=== PATIENT | male | born 1960 | race Caucasian/White ===

== ENCOUNTER 2019-05-11 07:02 | Inpatient (IN) ==
--- NOTE | 2019-04-29 12:05 | Anesthesiology Consultation ---
Date of Service April 29, 2019 Assessment & Plan (1) Encounter for pre-operative examination: PCP clearance ([facility]) 05/06 = "patient is medically cleared for intended procedure." Chart Review Chart Review: Acceptable Risk for Surgery and Patient seen in Pre Admission Testing Teaching & Discussion Instructed NPO after midnight before surgery, except medications with 15 cc of water. Medication instructions provided according to the PAT guidelines. History Surgery Operation Date: 05/11/19 09:00 Proposed Procedures p Left Total Hip Arthroplasty - Heath Garner DO Operation Date: 05/21/19 07:00 Proposed Procedures p Left Total Hip Arthroplasty - Jeffrey Smith MD Height/Weight Height: 5 ft 10 in Weight: 94 kg Allergies Allergy/AdvReac Type Severity Reaction Status Date / Time No Known Allergies Allergy Verified 04/21/19 10:45 Medications Home Medications Medication Instructions Recorded Confirmed Last Taken lisinopril 20 mg PO QAM 10/29/18 04/21/19 12/07/18 06:00 meloxicam 15 mg PO QAM 04/21/19 04/21/19 Unknown Past Medical History Medical History Hypertension Osteoarthritis Exercise / Class Metabolic Activity II 4-5 Yardwork/Stairs/Walk up hill (Somewhat limited by hip pain but denies CP or SOB with stairs) Past Family History Family History Other Family history of cancer Past Surgical History Surgical History History of surgery CHILDHOOD/UNKNOWN TYPE--HAS SCAR ON INGUINAL AREA--POSSIBLY HERNIA REPAIR? History of tooth extraction MULTIPLE History of total hip arthroplasty RIGHT HIP, DEC 2018, [facility] Past Anesthesia History No Hx of Anesthesia Complications History of PONV No Hx of PONV and Hx of Motion Sickness Social History Smoking Status: Former smoker tobacco type: cigarettes Smoking cigarettes per day: HX OF PREVIOUS USE, PT STATES HE QUIT SEVERAL YEARS AGO Do You Dip or Chew Tobacco: No Hx Alcohol Use: Yes Alcohol type: beer alcohol intake frequency: a few times a week Hx Substance Use: No substance use type: does not use Review of Systems Pt denies any recent chest pain, shortness of breath, palpitations, cough, fever or URI. 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) P: 76bpm SPO2: 99% RA T: 98.3 F R: 16 ENMT Mouth: + dentures (top); no chipped teeth and no loose teeth Thyromental Distance: > or= 3.5 Finger Breadths (4) Mallampati Class: I Neck normal visual inspection; neck extension not limited Respiratory normal respiratory effort Auscultation: lungs clear to auscultation bilaterally Cardiovascular Rate/Rhythm: regular rate and regular rhythm Heart Sounds: no murmur Vessels: no carotid bruit Extremities: no edema Testing Laboratory Results 04/29/19 11:51 04/29/19 11:51 04/29/19 04/29/19 04/29/19 11:51 11:51 11:51 PT 10.5 INR 1.0 APTT 26.3 Hemoglobin A1c 5.6 Urine Color Yellow Urine Appearance Clear Urine pH 5.0 Ur Specific [place] 1.022 Urine Protein Negative Urine Glucose (UA) Negative Urine Ketones Negative Urine Nitrite Negative Ur Leukocyte Esterase Negative Urine WBC (Auto) 0 Urine RBC (Auto) 0-4 U Hyaline Cast (Auto) 0 U Epithel Cells (Auto) 0-5 Urine Bacteria (Auto) Negative Blood Type Antibody Screen 04/29/19 11:51 PT INR APTT Hemoglobin A1c Urine Color Urine Appearance Urine pH Ur Specific [place] Urine Protein Urine Glucose (UA) Urine Ketones Urine Nitrite Ur Leukocyte Esterase Urine WBC (Auto) Urine RBC (Auto) U Hyaline Cast (Auto) U Epithel Cells (Auto) Urine Bacteria (Auto) Blood Type A Positive Antibody Screen NEGATIVE Electrocardiogram Date: 04/29/19 Findings: + NSR @ (70) Chest X-Ray Date: 11/05/18 Findings: + NAD
--- NOTE | 2019-04-29 12:12 | PAT Medication Instructions ---
Medication Instructions Date of Service April 29, 2019 Home Medications lisinopril 20 mg PO QAM meloxicam 7.5 mg PO UD PRN ASK your surgeon for instructions meloxicam 7.5 mg PO UD PRN DO NOT take the morning of surgery lisinopril 20 mg PO QAM Other Notes If you have any questions please call us at [phone] or [phone] or [phone] or [phone]
[2019-04-29 13:07] LABS: Appearance Urine Clear (Clear); Bacteria Urine Automated Negative (Negative); Bilirubin Urine Negative (Negative); Blood Urine 1+ (Negative); Cast Urine Automated 0 /lpf (0-5); Color Urine Yellow; Epithelial Cell Urine Auto 0-5 /lpf (0-5); Glucose Urine UA Negative (Negative); Ketones Urine Negative (Negative); Leukocyte Esterase Urine Negative (Negative); Nitrite Urine Negative (Negative); Protein Urine Negative (Negative); RBC Urine Automated 0-4 /hpf (0-4); Specific Gravity Urine 1.022 (1.000-1.030); Urobilinogen Urine Negative (Negative); WBC Urine Automated 0 /hpf (0-5)
[2019-04-29 13:08] LABS: Basophils # (auto) 0.02 K/uL (0-0.2); Basophils % (auto) 0.5 %; Eosinophils # (auto) 0.11 K/uL (0-0.5); Eosinophils % (auto) 2.9 %; Hematocrit (blood only) 44.5 % (42-52); Hemoglobin 15.1 g/dL (14.0-18.0); Lymphocytes # (auto) 1.36 K/uL (1.2-3.4); Lymphocytes % (auto) 35.9 %; Mean Corpuscular Hgb Conc 33.9 g/dL (32-36); Mean Corpuscular Volume 86.6 fL (80-100); Mean Platelet Volume 9.9 fL (7.4-10.4); Monocytes % (auto) 10.6 %; Neutrophils % (auto) 50.1 %; Platelet Count 223 K/uL (130-400); RDW Coefficient of Variation 12.9 % (11.5-14.5); RDW Standard Deviation 41.4 fL (36.4-46.3); Red Blood Count 5.14 M/uL (4.7-6.1); White Blood Count 3.79 K/uL (4.8-10.8)
[2019-04-29 13:17] LABS: Albumin Level 3.7 gm/dl (3.4-5.0); BUN Creatinine Ratio 15.4 (10-20); Calcium 9.2 mg/dl (8.5-10.1); Creatinine Clr Calc Pharmacy 100.4 ml/min; Est GFR (African American) 105.2; Est GFR (Non-African American) 90.8; Potassium 4.4 mmol/L (3.5-5.1)
[2019-04-29 13:20] LABS: Partial Thromboplastin Time 26.3 Seconds (21.0-31.0); Prothrombin Time 10.5 Seconds (9.0-12.0)
[2019-04-29 13:41] LABS: Estimated Average Glucose 114 mg/dl; Hemoglobin A1C 5.6 % (4.5-5.6)
--- NOTE | 2019-05-09 13:17 | History & Physical Report ---
Date of Service May 09, 2019 Assessment & Plan (1) Degenerative joint disease (DJD) of hip: I have indicated the patient for left total hip replacement. The risks, benefits and complications of surgery were explained to the patient which include but not limited to infection, acute blood loss, DVT/PE, injury to nerves, vessels, bone, soft tissue, arthrofibrosis, chronic pain, failure of the prosthesis, hip dislocation, leg length discrepancy, need for additional surgery, cardiac and pulmonary events and . The patient wished to proceed with surgery and informed consent was obtained at this time. We will plan for ASA BID post-operatively for DVT prophylaxis. Upon discharge the patient will be discharged home with home health services. Appropriate clearances by PCP were obtained. History of Present Illness Chief Complaint: Left hip pain/DJD Primary Care Provider: Erick Durbin The patient is a 59 year old male who presents with complaints of severe left hip pain and DJD. The patient has failed outpatient conservative treatments to this point which included NSAIDs, home exercise/walking program/PT. IA corticosteroid injection discussed, patient declined. The patient's pain and limited function have progressed to the point where they severely hinder their activities of daily living and they no longer tolerate exercise programs. They are requesting to proceed with total hip replacement surgery. Allergies Allergy/AdvReac Type Severity Reaction Status Date / Time No Known Allergies Allergy Verified 05/11/19 07:44 Home Medications Home Medications Medication Instructions Recorded Confirmed Type lisinopril 20 mg PO QAM 10/29/18 05/11/19 History meloxicam 15 mg PO QAM 04/21/19 05/11/19 History Past Med/Surg History Medical History Hypertension Osteoarthritis Surgical History History of surgery CHILDHOOD/UNKNOWN TYPE--HAS SCAR ON INGUINAL AREA--POSSIBLY HERNIA REPAIR? 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 Beliefs That Will Affect Care: None marital status: Current Living Situation: Spouse Other Information That Helps Us Care for You: No Feels Safe at Home: Yes Safety Concerns: Feels Safe At This Time Smoking Status: Former smoker Tobacco Type: cigarettes Cigarettes Per Day: HX OF PREVIOUS USE, PT STATES HE QUIT SEVERAL YEARS AGO Do You Dip or Chew Tobacco: No Second Hand Exposure: No Tobacco Cessation Education Requested by Patient: No Hx Alcohol Use: Yes Alcohol type: beer Hx Substance Use: No Review of Systems Review of Systems: All systems reviewed & are unremarkable except as noted in HPI & below Constitutional: as per Subjective / HPI Physical Exam Physical Exam: LLE NVSI +EHL/FHL/TA/GS SILT grossly, +2 DP pulse, compartments soft NT, limited painful ROM of the hip, antalgic gait. Constitutional: WD/WN, vitals as above Eyes: PERRL, conjunctivae normal, anicteric sclerae ENMT: external ear and nose normal, oropharynx normal Neck: trachea midline, no thyromegaly Respiratory: normal respiratory effort, lungs clear to auscultation Cardiovascular: RRR, no murmur, no edema Chest (Breasts): normal inspection/palpation of breasts Gastrointestinal (Abdomen): normal bowel sounds, soft, nontender, no hepatosplenomegaly Musculoskeletal: no cyanosis or clubbing, extremities motor strength 5/5 Skin: no rashes, warm and dry Neurologic: patellar DTR's 2+ bilat, sensation intact Psychiatric: A+Ox3, euthymic affect Lymphatic: no cervical or axillary lymphadenopathy Results & Data Diagnostic Findings Multiple views of the hip demonstrates severe DJD with complete loss of the joint space. +osteophytes, +sclerosis, +subchondral cysts.
[~2019-05-11 07:02] MED LIST: ACETAMINOPHEN 500 MG TAB PO SCH; CEFAZOLIN 2000MG 2,000 MG/15 ML SYR IV SCH; CeleBREX 200 MG CAP PO SCH; FAMOTIDINE 20 MG TAB PO SCH; GABAPENTIN 300 MG x 2 PO SCH; LR 500ML BOLUS, THEN 15ML/HR IV SCH; METOCLOPRAMIDE HCL 10 MG TABLET PO SCH; MIDAZOLAM HCL 1 MG/ML 2ML VIAL ONE; PHENYLEPHRINE HCL 10 MG/ML VIAL ONE; PROPOFOL IV EMULSION 10 MG/ML 20 ML VIAL IV ONE; ROPIVACAINE 0.5% HCL/PF 150 MG, BUPIVACAINE 0.5% MPF 30 ML, EPINEPHrine 30MG/30ML (OR U... INFIL SCH; TRANEXAMIC ACID 1,000 MG **IV Intra-op IV SCH; TRANEXAMIC ACID 1,000 MG **IV Pre-op IV SCH; dexAMETHasone 4 MG TAB PO SCH; fentaNYL citrate 100 MCG/2 ML VIAL ONE
[2019-05-11] MEDS ORDERED: ATROPINE SULFATE 0.1 MG/ML 10ML SYR IV PRN (07:06)
[2019-05-11] MEDS ORDERED: ePHEDrine sulfate 50 MG/ML AMP IV PRN (07:06)
[2019-05-11] MEDS ORDERED: PHENYLEPHRINE 100MCG/ML 5ML SYR IV PRN (07:06)
[2019-05-11] MEDS ORDERED: ONDANSETRON INJ 2 MG/ML 2 ML VIAL IV PRN ×2 (07:06→11:52)
[2019-05-11] MEDS ORDERED: PROMETHAZINE HCL 12.5 MG in SODIUM CHLORIDE 0.9% 50 ML IV PRN (07:06)
[2019-05-11] MEDS ORDERED: HYDROmorphone INJ 1 MG/ML SYRINGE IV PRN (07:06)
[2019-05-11] MEDS ORDERED: fentaNYL citrate 100 MCG/2 ML VIAL IV PRN (07:06)
[2019-05-11] MEDS ORDERED: BUPIVACAINE 0.5 % 5 MG/1 ML PF 10ML VIAL ONE (07:07)
[2019-05-11] MEDS ORDERED: BACITRACIN INJ 50,000 UNIT VIAL ONE (07:11)
[2019-05-11] MEDS ORDERED: ORTHO JOINT ANESTHETIC ONE (07:11)
--- NOTE | 2019-05-11 08:36 | History & Physical Bridge Note ---
Date of Service May 11, 2019 History & Physical Bridge Note I have examined the patient, reviewed the History & Physical and in the interval since the performance of the History & Physical I have noted the following changes of clinical significance: no changes noted
--- NOTE | 2019-05-11 10:28 | Post Operative Brief Note ---
Immediate Post Op Note v1 Date of Surgery May 11, 2019 Pre & Post Diagnosis Operation Date: 05/11/19 09:30 Pre-Op Diagnosis: Unilateral Primary Osteoarthritis, Left Hip Post-Op Diagnosis: Unilateral Primary Osteoarthritis, Left Hip Operation Date: 05/21/19 07:00 <No data on this case meets the specified criteria> Procedure Operation Date: 05/11/19 09:30 Actual Procedures p Left Total Hip Arthroplasty-Uncemented(Left) - Heath Garner DO Operation Date: 05/21/19 07:00 <No data on this case meets the specified criteria> Surgeon Heath Garner DO Project Management It Specialist Derick Muse Estimated Blood Loss 85 Findings Consistent with Post-Op Diagnosis Fluids 1200 cc LR Specimens femoral head Anesthesia Type Spinal MAC Complications none Disposition Disposition: Recovery Room Overlapping Procedure I was present for: the critical portions of procedure. I was immediately available: during the entire case. Back up surgeon: was not required during procedure.
--- NOTE | 2019-05-11 10:48 | Operative Report ---
Post Operative Report Pre & Post Diagnosis Operation Date: 05/11/19 09:30 Pre-Op Diagnosis: Unilateral Primary Osteoarthritis, Left Hip Post-Op Diagnosis: Unilateral Primary Osteoarthritis, Left Hip Operation Date: 05/21/19 07:00 <No data on this case meets the specified criteria> Procedure Operation Date: 05/11/19 09:30 Actual Procedures p Left Total Hip Arthroplasty-Uncemented(Left) - Heath Garner DO Operation Date: 05/21/19 07:00 <No data on this case meets the specified criteria> Surgeon Heath Garner DO Career Development Specialist Derick Muse Estimated Blood Loss 85 Findings Consistent with Post-Op Diagnosis Specimens Femoral head Anesthesia Type Spinal MAC Complications none Disposition Disposition: Recovery Room Indications The patient is a 59-year-old male who presents with severe progressive left hip DJD who has failed outpatient conservative treatments. I indicated the patient for a total hip replacement and the risks and benefits were explained in detail which included but not limited to infection, bleeding, blood clot, damage to surrounding bone, nerves, vessels, soft tissue, hip dislocation, failure of the prosthesis, leg length discrepancy, need for additional surgery and . The patient agreed to proceed with replacement of the hip and informed consent was obtained. Appropriate clearances were obtained. Description of Procedure COMPONENTS USED: basno hip system: Acetabulum size 54 E, femur size 6 : 132 degree offset, femoral head 36-2.5, liner 36 E, acetabular screw 25 mm x 1. Following induction of adequate spinal anesthesia, the patient was transferred to the OR table and placed in lateral decubitus position with right hip down. The left hip was prepped and draped in the typical sterile fashion. A timeout was performed, patient identified and site marie confirmed. Appropriate antibiotics were given. A standard posterolateral/Andrew-Langenbeck incision was made. Subcutaneous tissue was sharply dissected. Electrocautery was utilized for hemostasis. The fascia was incised throughout the length of the wound and retracted with the Charnley retractor. The bursa was taken down and the short external rotators were identified. The piriformis was tagged with #1 Vicryl. The short external rotators and capsule were divided from the posterior aspect of the femur using electrocautery. The posterior capsule was tagged with #1 Vicryl. Both external rotators and posterior capsule were swept posterior and protected, along with protecting the sciatic nerve. The hip was dislocated by flexion and internally rotation in a controlled manner and exposure of the femoral neck was gained with an old-style Hohmann and a blunt cobra retractor. A femoral cutting guide was utilized for making the appropriate level femoral neck cut with reciprocating saw. The femoral head was removed, measured and reserved on the back table. Next, attention was turned to the acetabulum. A posterior and anterior offset retractor was placed to gain adequate exposure. Acetabular labrum as well as posterior capsule elements were removed using electrocautery and forceps. Fovea centralis was cleared of all soft tissue. Sequential reaming was performed starting at 48 mm and carried up to a 54 mm and decision was made to proceed with impaction of a 54 mm trabecular metal cup. This was impacted and held using a single 25 mm bone screw. The trial acetabular liner was placed at this time. Next, attention was turned to the proximal femur where a Bovie and pickup was used to further clear short ex ternal rotators from their insertion on the femur. Box osteotome and canal finder was used to gain access to the femoral canal and the lateral reamer on power was used to further open the proximal lateral canal. Sequentially rasping was carried up to a 6 which gave good fit and fill of the proximal femur. A trial reduction was carried out with a 132 degree offset femoral neck component a 36-2.5 mm femoral head. The trial reduction was stable in all degrees of rotation with no [id number] impingement. The hip was dislocated, trial components were removed and access to the acetabulum was re-established. The trial liner was removed and the cup was irrigated to ensure all debris was removed. The final acetabular liner was inserted and properly seated in the cup. Access to the femur was once more gained and the size 6 femoral stem with 132 degree offset was impacted into position. The hip was once more assessed with the 36-2.5 mm femoral head. Stability was accessed and found to be excellent with equal leg lengths. The hip was dislocated for the last time and the final 36-2.5 ceramic femoral head was impacted in place and the hip was reduced. Range of motion was checked once again and found to be stable. A Betadine soak was performed. After 3 minutes, the hip was once more irrigated with copious sterile saline solution with bacitracin. The percy-incisional soft tissue was injected utilizing [place] ortho mix which includes a combination of Ropivicaine 0.5% 150mg, Bupivicaine 0.5%/Epinephrine 1:200,000 30ml, Toradol 30mg, Dexamethasone 4mg, Ketamine 10mg, Clonidine 100mcg and NSS 30ml Orthomix solution. The piriformis, external rotators and capsule were repaired to the greater trochanter through bone tunnels using #5 FiberWire. The fascia was closed using #1 Vicryl, subcutaneous tissue was closed using 2-0 Vicryl, and skin was closed with 3-0 V-lock suture and Dermabond Prineo. Sterile dressings were applied which included nel, 4x4s and tegaderm adhesive dressing. The patient tolerated the procedure well and was transported to PACU in stable condition. Due to the complex nature of the procedure, the entire surgery was performed with the operational assistance of Derick Muse PA-C. The studio assistant, under direct supervision, was involved in the actual performance of all aspects of the surgical procedure including patient positioning, hemostasis, tissue retraction, instrument management and wound closure. I attest to the content of the Intraoperative Record and any orders documented therein. Any exceptions are noted below.
--- NOTE | 2019-05-11 11:23 | XRay Report ---
XR hip 1V LT w pelvis CLINICAL HISTORY: Postoperative evaluation. COMPARISON: None FINDINGS: Alignment of the total left hip arthroplasty is anatomic. There is no periprosthetic fract ure or unexpected radiopaque foreign body. There is an acetabular screw. Right hip arthroplasty is no marleni. IMPRESSION: Expected findings following total left hip arthroplasty. Electronically signed by: Alexy Lundy M.D. 05/11/2019 11:22 AM
--- NOTE | 2019-05-11 11:30 | Anesthesiology Progress Note ---
Date of Service May 11, 2019 Anesthesia Post Procedure Vital Signs Vital Signs: Temp Pulse Pulse Pulse Resp BP BP 05/11/19 11:26 75 17 104/66 05/11/19 11:25 67 16 05/11/19 11:21 67 14 95/64 L 05/11/19 11:20 77 13 05/11/19 11:16 69 14 103/64 05/11/19 11:15 70 14 05/11/19 11:11 80 19 98/62 L 05/11/19 11:10 75 19 05/11/19 11:06 75 16 100/63 05/11/19 11:05 71 20 05/11/19 11:01 76 15 92/66 L 05/11/19 11:00 76 21 05/11/19 10:55 36.3 C L 75 73 23 94/62 L 94/62 L 05/11/19 07:47 36.7 C 80 18 152/104 H Pulse Ox 05/11/19 11:26 97 05/11/19 11:25 97 05/11/19 11:21 98 05/11/19 11:20 96 05/11/19 11:16 98 05/11/19 11:15 98 05/11/19 11:11 97 05/11/19 11:10 98 05/11/19 11:06 98 05/11/19 11:05 98 05/11/19 11:01 98 05/11/19 11:00 98 05/11/19 10:55 95 05/11/19 07:47 98 Pain Intensity Left Hip: Pain Intensity: 0 Transfer of Care Handoff Completed per policy Notes Mental Status: alert / awake / arousable Patient Amnestic to Procedure: Yes Nausea / Vomiting: adequately controlled Pain: adequately controlled Airway Patency, RR, SpO2: stable & adequate BP & HR: stable & adequate Neuraxial Anesthesia: was administered and sensory block is resolving Anesthetic Complications: no major complications apparent Notes: Awake, doing well, no complaints. VSS.
[2019-05-11] MEDS ORDERED: NALOXONE HCL 0.4 MG/1 ML VIAL/CARP IV PRN (11:52)
[2019-05-11] MEDS ORDERED: METOCLOPRAMIDE HCL INJ 5 MG/ML 2 ML VIAL IV PRN (11:52)
[2019-05-11] MEDS ORDERED: OXYCODONE HCL IR 5 MG TAB (IMMEDIATE RELEASE) PO PRN (11:52)
[2019-05-11] MEDS ORDERED: MAGNESIUM HYDROXIDE SUSP 30 ML UDC PO PRN (11:52)
[2019-05-11] MEDS ORDERED: HYDROmorphone INJ 0.5 MG/0.5 ML SYR IV PRN (11:52)
[2019-05-11] MEDS ORDERED: BISACODYL 10 MG SUPP PR PRN (11:52)
[2019-05-11] MEDS ORDERED: SODIUM CHLORIDE 0.9% 1000ML 1,000 ML IV SCH (11:52)
[2019-05-11] MEDS: KETOROLAC 30 MG/ML VIAL IV SCH ×3 (12:24→23:56)
[2019-05-11] MEDS: ACETAMINOPHEN 500 MG TAB PO SCH ×2 (13:37→22:27)
--- NOTE | 2019-05-11 15:54 | Orthopedic Progress Note ---
Date of Service May 11, 2019 Assessment & Plan (1) Degenerative joint disease (DJD) of hip: Status post left total hip arthroplasty -Ancef x24 -DVT prophylaxis: SCDs, teds, ASA twice daily -Weight-bear as tolerated to left lower extremity -Posterior hip precautions -PT/OT -Postoperative x-ray demonstrates a well aligned well fixed prosthesis without fracture or dislocation. -A.m. labs -DC planning: Home with home health Subjective Post Operative Progress Note Patient seen sitting up in bed, comfortable, denies complaints, pain well controlled, no acute issues. Still feeling the effects of spinal anesthesia. Review of Systems Review of Systems: All systems reviewed & are unremarkable except as noted in HPI & below Constitutional: as per Subjective / HPI Physical Exam Physical Exam: Limited left lower extremity physical exam secondary to spinal anesthesia, +2 dorsalis pedis pulse, compartment soft nontender, dressing clean dry and intact. Constitutional: WD/WN, vitals as above Results & Data Vital Signs (Past 12 Hours) Vital Signs Temp Pulse Pulse Pulse Resp BP BP 05/11/19 15:00 36.7 C 72 18 137/92 05/11/19 13:41 81 14 124/81 05/11/19 12:59 36.5 C 75 18 129/81 05/11/19 12:18 36.4 C L 67 16 111/75 05/11/19 11:53 36.5 C 66 14 107/69 05/11/19 11:36 106/73 05/11/19 11:35 67 05/11/19 11:31 73 14 98/70 L 05/11/19 11:30 74 15 05/11/19 11:29 36.5 C 05/11/19 11:27 70 15 05/11/19 11:26 75 17 104/66 05/11/19 11:25 67 16 05/11/19 11:21 67 14 95/64 L 05/11/19 11:20 77 13 05/11/19 11:16 69 14 103/64 05/11/19 11:15 70 14 05/11/19 11:11 80 19 98/62 L 05/11/19 11:10 75 19 05/11/19 11:06 75 16 100/63 05/11/19 11:05 71 20 05/11/19 11:01 76 15 92/66 L 05/11/19 11:00 76 21 05/11/19 10:55 36.3 C L 75 73 23 94/62 L 94/62 L 05/11/19 07:47 36.7 C 80 18 152/104 H Pulse Ox 05/11/19 15:00 97 05/11/19 13:41 100 05/11/19 12:59 99 05/11/19 12:18 98 05/11/19 11:53 99 05/11/19 11:36 98 05/11/19 11:35 97 05/11/19 11:31 97 05/11/19 11:30 96 05/11/19 11:29 96 05/11/19 11:27 98 05/11/19 11:26 97 05/11/19 11:25 97 05/11/19 11:21 98 05/11/19 11:20 96 05/11/19 11:16 98 05/11/19 11:15 98 05/11/19 11:11 97 05/11/19 11:10 98 05/11/19 11:06 98 05/11/19 11:05 98 05/11/19 11:01 98 05/11/19 11:00 98 05/11/19 10:55 95 05/11/19 07:47 98
[2019-05-11] MEDS: CEFAZOLIN 2000MG 2,000 MG/15 ML SYR IV SCH (16:18)
[2019-05-11] MEDS: DOCUSATE SODIUM 100 MG CAP PO SCH (20:37)
[2019-05-11] MEDS ORDERED: SENNA 8.6 MG TAB PO SCH (21:00)
[2019-05-12] MEDS: CEFAZOLIN 2000MG 2,000 MG/15 ML SYR IV SCH (00:03)
[2019-05-12] MEDS: ACETAMINOPHEN 500 MG TAB PO SCH ×2 (05:46→13:35)
[2019-05-12] MEDS: KETOROLAC 30 MG/ML VIAL IV SCH (05:46)
[2019-05-12 05:47] LABS: Eosinophils # (auto) 0.01 K/uL (0-0.5); Eosinophils % (auto) 0.1 %; Hemoglobin 12.9 g/dL (14.0-18.0); Immature Granulocytes # (auto) 0.02 K/uL (0.00-0.02); Immature Granulocytes % (auto) 0.2 %; Lymphocytes # (auto) 1.17 K/uL (1.2-3.4); Lymphocytes % (auto) 8.9 %; Mean Corpuscular Hgb Conc 34.9 g/dL (32-36); Mean Corpuscular Volume 85.6 fL (80-100); Mean Platelet Volume 9.5 fL (7.4-10.4); Monocytes # (auto) 1.26 K/uL (0.11-0.59); Monocytes % (auto) 9.6 %; Neutrophils # (auto) 10.66 K/uL (1.4-6.5); Neutrophils % (auto) 81.2 %; Platelet Count 202 K/uL (130-400); RDW Coefficient of Variation 12.7 % (11.5-14.5); RDW Standard Deviation 40.4 fL (36.4-46.3); Red Blood Count 4.32 M/uL (4.7-6.1); White Blood Count 13.12 K/uL (4.8-10.8)
[2019-05-12 06:17] LABS: BUN Creatinine Ratio 18.9 (10-20); Calcium 8.4 mg/dl (8.5-10.1); Creatinine Clr Calc Pharmacy 89.5 ml/min; Est GFR (Non-African American) 80.3
--- NOTE | 2019-05-12 07:55 | Anesthesiology Progress Note ---
Date of Service May 12, 2019 Anesthesia Post Procedure Vital Signs Vital Signs: Temp Pulse Pulse Pulse Resp BP BP 05/12/19 07:02 36.9 C 66 18 132/83 05/12/19 03:00 36.8 C 74 18 111/68 05/11/19 23:25 36.8 C 82 16 103/66 05/11/19 19:05 36.6 C 89 16 132/77 05/11/19 15:00 36.7 C 72 18 137/92 05/11/19 13:41 81 14 124/81 05/11/19 12:59 36.5 C 75 18 129/81 05/11/19 12:18 36.4 C L 67 16 111/75 05/11/19 11:53 36.5 C 66 14 107/69 05/11/19 11:36 106/73 05/11/19 11:35 67 05/11/19 11:31 73 14 98/70 L 05/11/19 11:30 74 15 05/11/19 11:29 36.5 C 05/11/19 11:27 70 15 05/11/19 11:26 75 17 104/66 05/11/19 11:25 67 16 05/11/19 11:21 67 14 95/64 L 05/11/19 11:20 77 13 05/11/19 11:16 69 14 103/64 05/11/19 11:15 70 14 05/11/19 11:11 80 19 98/62 L 05/11/19 11:10 75 19 05/11/19 11:06 75 16 100/63 05/11/19 11:05 71 20 05/11/19 11:01 76 15 92/66 L 05/11/19 11:00 76 21 05/11/19 10:55 36.3 C L 75 73 23 94/62 L 94/62 L Pulse Ox 05/12/19 07:02 99 05/12/19 03:00 98 05/11/19 23:25 97 05/11/19 19:05 97 05/11/19 15:00 97 05/11/19 13:41 100 05/11/19 12:59 99 05/11/19 12:18 98 05/11/19 11:53 99 05/11/19 11:36 98 05/11/19 11:35 97 05/11/19 11:31 97 05/11/19 11:30 96 05/11/19 11:29 96 05/11/19 11:27 98 05/11/19 11:26 97 05/11/19 11:25 97 05/11/19 11:21 98 05/11/19 11:20 96 05/11/19 11:16 98 05/11/19 11:15 98 05/11/19 11:11 97 05/11/19 11:10 98 05/11/19 11:06 98 05/11/19 11:05 98 05/11/19 11:01 98 05/11/19 11:00 98 05/11/19 10:55 95 Pain Intensity Left Hip: Pain Intensity: 0 Notes Mental Status: alert / awake / arousable and participated in evaluation Patient Amnestic to Procedure: Yes Nausea / Vomiting: adequately controlled Pain: adequately controlled Airway Patency, RR, SpO2: stable & adequate BP & HR: stable & adequate Hydration State: stable & adequate Neuraxial Anesthesia: was administered and sensory block resolved Anesthetic Complications: no major complications apparent and Pt Satisfied with anesthetic care
[2019-05-12] MEDS ORDERED: MULTIVITAMIN TAB PO SCH (09:00)
[2019-05-12] MEDS ORDERED: ASPIRIN 325 MG ECTAB PO SCH (09:00)
[2019-05-12] MEDS ORDERED: LISINOPRIL 20 MG TAB PO SCH (09:00)
[2019-05-12] MEDS: DOCUSATE SODIUM 100 MG CAP PO SCH (09:26)
--- NOTE | 2019-05-12 10:15 | Orthopedic Progress Note ---
Date of Service May 12, 2019 Assessment & Plan (1) Degenerative joint disease (DJD) of hip: Status post left total hip arthroplasty POD#1 -Ancef x24 -DVT prophylaxis: SCDs, teds, ASA twice daily -Weight-bear as tolerated to left lower extremity -Posterior hip precautions -PT/OT -Postoperative x-ray demonstrates a well aligned well fixed prosthesis without fracture or dislocation. -A.m. labs - hgb 12.9 -DC planning: Home with home health Subjective Post Operative Progress Note Patient seen sittingat bedside, comfortable, denies complaints, pain well controlled, no acute issues. Review of Systems Review of Systems: All systems reviewed & are unremarkable except as noted in HPI & below Constitutional: as per Subjective / HPI Physical Exam Physical Exam: LLE NVSI +EHL/FHL/TA/GS SILT grossly, +2 DP pulse, compartments soft NT, dressing cdi. Constitutional: WD/WN, vitals as above Results & Data Vital Signs (Past 12 Hours) Vital Signs Temp Pulse Resp BP Pulse Ox 05/12/19 07:02 36.9 C 66 18 132/83 99 05/12/19 03:00 36.8 C 74 18 111/68 98 05/11/19 23:25 36.8 C 82 16 103/66 97
[2019-05-12] MEDS ORDERED: CeleBREX 200 MG CAP PO SCH (21:00)
--- NOTE | 2019-05-13 20:35 | Discharge Summary ---
Date of Service May 13, 2019 Admission HPI Per Admitting Provider The patient is a 59 year old male who presents with complaints of severe left hip pain and DJD. The patient has failed outpatient conservative treatments to this point which included NSAIDs, home exercise/walking program/PT. IA corticosteroid injection discussed, patient declined. The patient's pain and limited function have progressed to the point where they severely hinder their activities of daily living and they no longer tolerate exercise programs. They are requesting to proceed with total hip replacement surgery. Principal Diagnosis Left total hip replacement Discharge Exam LLE NVSI +EHL/FHL/TA/GS SILT grossly, +2 DP pulse, compartments soft NT, dressing cdi. Constitutional WD/WN, vitals as above Discharge Data Allergies Allergy/AdvReac Type Severity Reaction Status Date / Time No Known Allergies Allergy Verified 05/11/19 07:44 Consultations 05/12/19 08:00 Consult Case Management - Discharge Planning Routine Procedures Performed Operation Date: 05/11/19 09:30 Actual Procedures p Left Total Hip Arthroplasty-Uncemented(Left) - Heath Garner DO Operation Date: 05/21/19 07:00 <No data on this case meets the specified criteria> Hospital Course (1) Degenerative joint disease (DJD) of hip: The patient is a 59 -year-old male who presents with long standing history of severe left hip DJD and failed outpatient conservative treatments including NSAIDs, bracing, injections and home walking/exercise program. The patient's symptoms have progressed to the point where it has been difficult to perform even normal activities of daily living. I indicated the patient for a left total hip arthroplasty, the risks, benefits and complications of the procedure include but not limited to infection, bleeding, damage to bone, nerves, vessels, surrounding soft tissue, may develop blood clots, loss of function, leg length discrepancy, dislocation, failure of the components, loosening of the components, the need for additional surgery and . The patient wished to proceed with surgery at this time and informed consent was obtained. Hospital Course: On 05/11/19 the patient was taken to the operating room, adequate anesthesia administered and underwent a left total hip arthroplasty. The patient tolerated the procedure well and was taken to the PACU in stable condition. Post- operatively the patient was started on a DVT ppx medication and given appropriate IV antibiotics. Consults were placed to physical therapy, occupational therapy and case management. On POD#1, the patient did well overnight and their pain was well controlled. Labs were drawn and the Hgb was 12.9. The patient progressed well with PT. Dressings were changed at this time and the incision was clean, dry and intact. The patients hospital stay was relatively uneventful and they were deemed stable by the orthopedic team and consultants to be discharged home with on 05/12/19. Discharge Instructions: Upon discharge the patient may weight bear as tolerates through their operative extremity. They were instructed to keep the incision clean and dry at all times. The patient may shower but should not submerge the incision, avoid bathing, pools and hot tubes. The patient was given a script for pain medication and should take as instructed. The patient was given a script for DVT ppx ASA 325mg BID and should take as directed. The patient was instructed to not drive or travel for long distances until cleared to do so. If the patient develops any symptoms of fevers, chills, nausea, vomiting, increased redness, swelling, pain or drainage from the surgical site, they should notify the office and/or proceed to the nearest emergency room. The patient should follow up in 10-14 days after surgery for their routine post-operative follow-up appointment and should call the office to confirm the date and time. Status post left total hip arthroplasty POD#1 -Ancef x24 -DVT prophylaxis: SCDs, teds, ASA twice daily -Weight-bear as tolerated to left lower extremity -Posterior hip precautions -PT/OT -Postoperative x-ray demonstrates a well aligned well fixed prosthesis without fracture or dislocation. -A.m. labs - hgb 12.9 -DC planning: Home with home health Total Time Total Time Spent Total Time Spent (In Minutes): >60 minutes Total Time Includes: Examination of the Patient, Discharge Planning, Medication Reconciliation and Communication With Other Providers Discharge Plan Discharge Items Patient Disposition: Home - Home Health Services Reason For Visit: Unilateral Primary Osteoarthritis, Left Hip Discharge Diagnosis: Left total hip replacement Condition: Good Discharge Goals: Decrease discomfort, Improve function, Increase independence and Therapeutic intervention Activity: Per 'Additional Instructions' section Lifting: Wait until after follow-up appointment Bathing Comment: No bathing, pools or hot tubs Sexual Activity: Wait until after follow-up appointment Exercise/Sports: Wait until after follow-up appointment Driving/Machine Use Comment: No driving till cleared by your surgeon Weightbearing: Left weightbearing Non-emergency contact: Primary Care Provider and Surgeon Call non-emergency contact if: you have any medication questions, your symptoms worsen, your pain is not controlled, your pain is worsening, your pain is unusual for you, your pain is concerning for you, you have a fever, your temperature is above 101, your wound has increased redness, your wound has increased drainage and your wound pain has increased Follow-up/Referrals: Erick Durbin [Primary Care Provider] - Diet: Regular Addtl Provider Instructions: ACTIVITY RECOMMENDATIONS: SELF CARE INSTRUCTIONS AFTER TOTAL HIP REPLACEMENT Until the incision and soft tissues around your hip have healed, there is a possibility that the hip prosthesis could dislocate. A. Observe the following precautions to prevent dislocation: 1. Don't bend your hip greater than 90 degrees. 2. Avoid crossing your legs or ankles while standing or lying. 3. Sit with your feet placed 6 inches apart. 4. When sitting, keep your knees below your hips. Sit on a firm surface, avoid deep, soft chairs and couches. Use an elevated toilet seat in the bathroom. 5. Don't bend over at the waist. Use a long handled shoehorn and a sock aid to help you put on your shoes and socks. A business travel consultant can help you picker machine operator objects that are too high or too low to reach. 6. Keep car riding to a minimum for at least one month after surgery. B. Your balance may be shaky for a while. Use crutches or a walker until directed by your doctor. C. Use hand rails when walking on stairs. D. Wear low heeled shoes with non-slip soles. E. Be sure that your floors are free of things that could trip you - throw rugs, electrical cords, small objects. Avoid wet and waxed floors, especially with crutches and canes. F. Try to walk several times a day with rest periods between. G. Continue with all the exercises taught to you in the hospital. Again, make walking a part of your daily routine. SPECIAL CARE INSTRUCTIONS: VERY IMPORTANT TO READ AND REVIEW A. You may still be at risk for phlebitis and blood clots. 1. Wear surgical stockings (ABHILASH hose) for 2 weeks after surgery to improve circulation and reduce swelling. 2. Take Aspirin 325mg twice daily for 4 weeks or as directed by your doctor. This is your blood thinner. 3. High risk patients may be prescribed a stronger blood thinner if necessary. 4. If you are on Coumadin normally, your family doctor/research executive should monitor your blood work. Expect a phone call the day of or the day after bloodwork is drawn to adjust your dosage. B. You must take antibiotics before having dental work, bladder, bowel and other surgery. Your doctor will provide you with a permanent card to carry describing precautions. C. Call [facility] if you have a fever, redness or swelling around the incision, cloudy drainage from incision, or sudden increase in pain in your hip, not relieved by your regular pain medication. D. Please call the office at if you have any concerns or questions about your operation or recovery. * YOU MAY SHOWER, NO TUB BATHS UNTIL CLEARED BY YOUR DOCTOR. * WEAR ABHILASH HOSE 20 HOURS PER DAY FOR 2 WEEKS. * YOU SHOULD USE A WALKER OR CRUTCHES FOR 2-4 WEEKS. THIS WILL HELP PREVENT STRAIN ON YOUR HIP MUSCLE AND ALLOW IT TO HEAL PROPERLY. YOU MAY WEAN TO A CANE TOLERATED. * MOST PATIENTS WILL HAVE HOME NURSING FOR THERAPY. IF YOU DECIDE TO DO OUTPATIENT PHYSICAL THERAPY, PLEASE SCHEDULE THIS 3 TIMES PER WEEK. *DERMABOND Prineo- This is a mesh tape dressing that is covered with glue. It should remain in place until the incision is properly healed, usually 10-14 days. This dressing is designed to naturally slough off. You may trim the excess mesh tape as it peels off. Incision may be briefly wet in a shower. Dry immediately by blotting with a clean, dry towel. Do not bath or swim until instructed by your doctor. Do not scratch, rub, or pick at the dressing. Do not apply any topical ointments or lotions until dressing is completely removed and/or instructed by your doctor. There may be a small piece of suture material at one end of your incision. Do not pull or trim this. If it is bothersome or catching on clothing, you may cover it with a band-aid. IF INCISION IS LEAKING THROUGH DRESSING, PLEASE CALL THE OFFICE . FOLLOW UP VISIT: If appointment is not already scheduled: Please call [facility] to make a follow-up appointment for 2 weeks after your surgery at . Prescriptions: New celecoxib [Celebrex] 200 mg Capsule 200 mg PO BID PRN (Reason: pain) Qty: 28 RF: 0 acetaminophen [Tylenol Extra Strength] 500 mg Tablet 1,000 mg PO Q8 PRN (Reason: pain) Qty: 90 RF: 0 aspirin 325 mg Tablet,Delayed Release (Dr/Ec) 325 mg PO BID Qty: 56 RF: 0 oxycodone 5 mg Tablet 5 mg PO Q6H MDD 6 tabs PRN (Reason: pain) Qty: 30 RF: 0 sennosides [Senokot] 8.6 mg Tablet 17.2 mg PO HS PRN (Reason: constipation) Qty: 28 RF: 0 Continued lisinopril 20 mg Tablet 20 mg PO QAM RF: 0 Discontinued meloxicam 15 mg Tablet 15 mg PO QAM RF: 0 Stand-Alone Forms: [employer] [facility]/Other Patient Handouts: Surgery Prevent DVT After, ED Stockings Abhilash Discharge Orders: Discharge Order (Routine); Ordered 05/12/19 Ordered By: Heath Garner Admission Data Admit Date/Time: 05/11/19 10:58 Attending Provider: Heath Garner Admit Provider: Heath Garner Primary Care Provider: Erick Durbin Service: Surgical Services Other Interventions: Discharge Summary Assessment (RN) Last Done: 05/12/19 11:17 DC Date/Time DO NOT enter until pt leaves facility: 05/12/19 13:38
== END 2019-05-12 13:38 | disposition home health service (06) | DRG 470 ==
LOC: ASU 07:02 → 3E 10:58
DX: M16.12 Unilateral primary osteoarthritis, left hip; I10 Essential (primary) hypertension